=== PATIENT | male | born 1970 | race Caucasian/White ===

== ENCOUNTER 2017-09-12 20:38 | Emergency (ER) | payer SELFPAY ==
[~2017-09-12] VITALS: Ht 177.8 cm; Wt 87.3 kg
[~2017-09-12 20:38] MED LIST: COL100 PO; LEXAPRO20 MG PO; NORCO1 TA2 PO
[2017-09-12 20:43] VITALS: BP 128/95; Ht 177.8 cm; Wt 87.3 kg
== END 2017-09-12 21:53 | disposition left against medical advice (07) ==
LOC: ED 20:38
DX: Z53.21 Procedure and treatment not carried out due to patient leaving prior to being seen by health care provider (principal)

== ENCOUNTER 2017-10-12 11:22 | Emergency (ER) | payer OTHER ==
[~2017-10-12] VITALS: Ht 175.3 cm; Wt 86.2 kg
[2017-10-12 11:28] VITALS: BP 147/102; Ht 175.3 cm; Wt 86.2 kg
== END 2017-10-12 12:37 | disposition other institution (70) ==
LOC: ED 11:22
DX: S60.811A Abrasion of right wrist, initial encounter (principal); I10 Essential (primary) hypertension; Z88.5 Allergy status to narcotic agent; X58.XXXA Exposure to other specified factors, initial encounter; Y93.89 Activity, other specified; Y92.89 Other specified places as the place of occurrence of the external cause; Y99.8 Other external cause status

== ENCOUNTER 2020-07-04 17:05 | Emergency (ER) | payer OTHER ==
[~2020-07-04] VITALS: Ht 175.3 cm; Wt 90.7 kg
[2020-07-04 17:15] VITALS: BP 169/108; Ht 175.3 cm; Wt 90.7 kg
== END 2020-07-04 21:52 | disposition home or self-care (01) ==
LOC: ED 17:05
DX: L03.312 Cellulitis of back [any part except buttock and flank] (principal); F17.210 Nicotine dependence, cigarettes, uncomplicated; Z71.6 Tobacco abuse counseling; Z88.5 Allergy status to narcotic agent
CPT/HCPCS: 99406